=== PATIENT | female | born 1985 | race Caucasian/White ===

== ENCOUNTER 2022-04-12 16:12 | Outpatient (CLI) | payer OTHER, SELFPAY ==
[2022-04-12 16:36] LABS: Absolute Neutrophil Count 5.7 X10^3/uL (2.0-7.7); Basophil# 0.04 X10^3/uL; Basophil% 0.5 % (0-1); Eosinophil# 0.11 X10^3/uL; Eosinophils% 1.3 % (0-5); Hematocrit 39.2 % (37-47); Hemoglobin 12.2 g/dL (12.0-15.0); Lymphocyte % 24.5 % (19-41); Mean Corp Hgb Conc 31.1 g/dL (32-36); Mean Corpuscular Hgb 26.5 pg (27.0-32.0); Mean Corpuscular Volume 85.2 fL (81-99); Monocyte# 0.63 X10^3/uL; Monocyte% 7.4 % (0-10); NRBC Flagged by Analyzer 0 % (0-5); Neutrophil # 5.66 X10^3/uL (2.7-7.7); Neutrophil % 65.9 % (47-70); POSITIVE MORPHOLOGY YES; Platelet Count 248 K/mm3 (150-450); RBC Distribution Width CV 20.6 % (11.6-14.6); RBC Distribution Width SD 62.2 fl (35.1-43.9); White Blood Count 8.6 K/mm3 (4.4-11.0)
--- NOTE | 2022-04-12 17:08 | PCM.HP.BLA ---
History and Physical Date of Admission: 04/12/22 Chief complaint: Vaginal bleeding History of present illness: 28-year-old arrives with heavy vaginal bleeding for suction dilation and curettage. All questions answered and consent signed. Obstetric history: Patient with a history of 3 deliveries Past medical history: Anxiety Medications: Abilify, Ativan, Depakote Past surgical history: section x3, appendectomy Allergies: No known drug allergies Family history: Denies history DVT or PE Social history: Denies smoking, Kos, drug use Review of systems: Besides above pertinent positives a full review of systems was performed and found to be negative Physical exam: Vitals: Pending General: Normal-appearing no acute distress HEENT: Normocephalic/atraumatic no cervical of adenopathy Cardiac/respiratory: No use accessory muscles, nonlabored breathing Abdomen: Soft, nontender, nondistended Extremities: No peripheral edema normal peripheral pulses Psych: Normal affect normal demeanor nonpressured speech Labs: Pending Assessment plan: 28-year-old with heavy vaginal bleeding unresolved in need of suction dilation and curettage. Educated patient on risk benefits alternatives of the procedure. Patient states understanding and wished to proceed. All questions were answered and consent was signed. Educated patient on possible need for blood transfusion risk benefits alternatives. Patient states understanding and agrees to transfusions if needed
[2022-04-12 17:13] LABS: Anion Gap 7 (5-15); BUN 13 mg/dL (7-18); BUN/Creat Ratio 16.8 RATIO (10-20); Calcium,Total 9.1 mg/dL (8.5-10.1); Chloride 106 mmol/L (98-107); Creatinine, Serum 0.78 mg/dL (0.55-1.02); EST Glomerular Filtration Rate 88 mL/min (>60); Est Glom Filt Rate - Afr Amer 107 mL/min (>60); Glucose 109 mg/dL (74-106); Sodium Level 140 mmol/L (136-145)
[2022-04-12 17:17] LABS: hCG Titer Quant., Serum 30 mIU/mL (1-3)
[2022-04-12 17:29] LABS: Differential Indicated SCAN CRITERIA MET
[2022-04-12 17:31] LABS: Anisocytosis 1+; Platelet Estimate ADEQUATE (ADEQ); Red Cell Morphology NORM C+C NORMAL (NORM C&C)
--- NOTE | 2022-04-12 18:42 | DCINST_ITS ---
Discharge Instructions Diet Discharge Diet: No restrictions Activity Discharge Activity: Return to Normal Activity, May Drive and May Shower May resume sexual activity in: 4-6 weeks Weight Bearing Status: Weight bearing as tolerated Dressing / Incision Call your doctor if your incision/area has: Continuous Slow Oozing and Foul Smelling Discharge Call your doctor if you observe: Fever of 101 or Higher, Shortness of breath and Chest pain Follow Up Care Please Follow Up With: Luciano Ignacio MD When: 2 weeks postoperatively Test Results: Test results from this visit will be discussed in further detail at your follow- up appointment, if applicable. Discharge Plan Admission Attending Provider: Luciano Ignacio Disposition Patient Disposition: Home, Self Care
--- NOTE | 2022-04-12 18:43 | PCM.OPRPT ---
Report of Operation Date of Procedure: 04/12/22 Pre-Operative Diagnosis: Abnormal uterine bleeding, missed Post-Operative Diagnosis: Abnormal uterine bleeding, missed Surgery/Procedure Performed:: Suction dilation and curettage Description of Surgical Findings:: Surgeon: Luciano Ignacio MD Anesthesia: MAC EBL: 50 cc Urine output: 30 cc none IV fluids: 1000 cc Complications: None Specimen: Products of conception Findings: Preoperative bedside ultrasound with thickened endometrial lining. Cervix dilated 1 to 2 cm. 9 mm curved suction curette used. Post procedure bedside ultrasound with thin endometrial stripe. Methergine IM given. Consent: Patient with missed and abnormal uterine bleeding in need of suction dilation and curettage. Patient understands risk of the procedure include but are not limited to visceral or vascular injury, prolonged hospitalization, blood loss and need for transfusion, reoperation. Patient state understanding wish to proceed. All questions were answered and consent was signed. Procedure: Patient was brought back to the OR where MAC anesthesia was found to be adequate. 200 mg of doxycycline IV given for infection prophylaxis. Patient was prepared and draped in dorsolithotomy position with yellowfin stirrups. A weighted speculum is placed in the posterior aspect of the vagina. 9 mm curved suction curettage was used under direct visualization. Products sent to pathology. IM Methergine given. Post procedure bedside ultrasound performed with above findings thin endometrial stripe. Patient monitored in the OR and good hemostasis was noted. All counts were correct x2. Patient tolerated procedure well and was brought to recovery in stable condition.
[2022-04-12 18:48] VITALS: BP 97/46; BP 98/47; PULSE 85; RESP 18; TEMP 36.7; O2SAT 98
[2022-04-12 18:51] VITALS: BP 90/58; BP 98/47; PULSE 72; RESP 18; O2SAT 100
[2022-04-12 18:55] VITALS: BP 95/62; BP 98/47; PULSE 70; RESP 18; O2SAT 100
[2022-04-12 19:00] VITALS: BP 100/57; BP 98/47; PULSE 66; RESP 18; O2SAT 100
[2022-04-12 19:05] VITALS: BP 98/47; BP 99/60; PULSE 66; PULSE 67; RESP 18; TEMP 36.6; O2SAT 100
[2022-04-12 19:50] VITALS: BP 98/47
== END 2022-04-12 20:16 | disposition home or self-care (01) ==
PROVIDERS: Visit Provider Obstetrics & Gynecology
DX: N93.9 Abnormal uterine and vaginal bleeding, unspecified (principal)
CPT/HCPCS: 36415; 80048; 84702; 85025; 86850; 86900; 86901; 88305

== ENCOUNTER → 2022-04-12 | Day surgery (SDC) | payer OTHER, SELFPAY ==
[2022-04-12 17:24] VITALS: BP 98/47; PULSE 91; RESP 18; TEMP 37.2; O2SAT 99; BMI 35.1
--- NOTE | 2022-04-12 18:15 | POC_PTH ---
PATIENT: ANA GOMEZ LOC: [facility] [place] U#:[id number] AGE/SX: 36/F ROOM: RE04/12/[address]: Dr. Luciano Ignacio MD : [id number] BED: DIS: 04/12/2022 SPEC #: [id number] RECD: 04/13/22 09:06 STATUS: CARMEL RERadha #: [id number] LELO: 04/12/22 18:[address]: Luciano Ignacio DEPT: SURGICAL PATHOLOGY RECD BY: Shayy See Tissues: Product of conception, NOS Procedures: Surgery Specimen Level IV Comments: @ Originally on account #[id number] Req #[id number] HEADER OPERATION: Suction dilation and curettage PRE-OP DIAGNOSIS: Missed TISSUE SUBMITTED: Products of missed conception MICROSCOPIC DIAGNOSIS Endometrium, curettage: Autolyzed chorionic villi consistent with products of conception. AM:francois 04/14/2022 MICROSCOPIC DESCRIPTION Slides are reviewed. GROSS DESCRIPTION Received in fixative is one container labeled with the patient's name and designated products of conception. The specimen consists of multiple irregular fragments of hemorrhagic red-polanco soft tissue that in aggregate measure 10 x 10 x 1.2 cm. parts are not grossly recognized. [employer] Wafers portions are submitted in one cassette. / AM:rg 04/13/2022 TC:5 CPT: 51695
== END | disposition home or self-care (01) ==
LOC: SDC 16:51
PROVIDERS: PCP Family Medicine; Referring Provider Obstetrics & Gynecology; Visit Provider Obstetrics & Gynecology
DX: O02.1 Missed abortion (principal); F31.9 Bipolar disorder, unspecified; F41.9 Anxiety disorder, unspecified; Z79.899 Other long term (current) drug therapy
CPT/HCPCS: 59820; 01965; 88305; J7120; J2405